=== PATIENT | male | born 1980 | race Caucasian/White ===

== ENCOUNTER 2016-09-13 07:45 | Emergency (ER) | payer OTHER ==
[~2016-09-13] VITALS: Ht 190.5 cm; Wt 103.2 kg
[2016-09-13 07:50] VITALS: BP 167/78; PULSE 89; RESP 16; O2SAT 100
[2016-09-13] MEDS ORDERED: 0.9% Sodium Chloride 1,000 ML IV ONE (07:53)
--- NOTE | 2016-09-13 07:53 | ED.REPORT ---
HPI-General Illness Date of Service Sep 13, 2016 ED Provider: Ant Perez MD The patient is a 36 year old male who presents to the emergency department concerned he may have food poisoning. He ate dinner last night which included barbecued meat, potato salad, and pasta salad. His stomach started hurting soon after. He later developed nausea, vomiting, and diarrhea. His symptoms have continued to onset. His roommate has similar symptoms who ate the same food. He denies bloody stools, bloody emesis, fever, chills, cough, shortness of breath or chest pain. Nursing Notes Stated Complaint: POSS FOOD POISONING Chief Complaint: Male Abdominal Pain Nursing Notes Reviewed: Yes Allergies: Coded Allergies: No Known Allergies (Unverified , 09/13/16) Scheduled PRN Ondansetron ODT (Zofran ODT) 4 Mg Tablet 4 MG PO Q4H PRN PRN For Nausea General Time Seen by MD: 07:52 Chief Complaint Other (possible food poisoning) Hx Obtained From: Patient Arrived By: Walk-in Sudden in Onset?: Yes Onset Occurred: 9 - 12 hours ago Symptom Duration: Since onset Location: : Abdomen Quality: Painful Severity: Current: Pain level 4 out of 10 Severity: Maximum: Moderate Recent Healthcare: No recent doctor visit, No recent hospitalization Similar Sx Previous: No Past Medical History Past Medical History None Family History Noncontributory Social History Other Social History: Local resident Ambulatory Status Independent Review of Systems Full Review of Systems Constitutional: Denies: Chills, Fever Respiratory: Denies: Non-productive cough, Shortness of breath Cardiovascular: Denies: Chest pain GI: Reports: Abdominal pain, Diarrhea, Nausea, Vomiting, Denies: Bloody/tarry stool, Hematemesis, Hematochezia, Melena Complete sys rev & neg: except as marked. Physical Exam Vital Signs Vital Signs Date Time Temp Pulse Resp B/P Pulse Ox O2 Delivery O2 Flow Rate FiO2 09/13/16 07:50 36.6 89 16 167/78 100 Room Air Initial VS: Reviewed Head / Eyes: Atraumatic, Normocephalic, PERRL Neck: Supple, Non-tender, Full range of motion Respiratory: Breath sounds normal, Clear to auscultation, No respiratory distress Cardiovascular: Regular rate & rhythm, Heart sounds normal, Intact distal pulses Lymphatic: No lymphadenopathy Extremities: Vascular intact, Neuro intact, No swelling, No tenderness Skin: Warm, Dry, No cyanosis Neurologic: Alert, Oriented, Nonfocal Psychiatric: Mood/affect normal, Behavior normal, Normal thought content General/Constitutional: Awake, Alert, Cooperative ENT: Airway patent Mouth: Positive: Mucous membranes dry (lightly) Abdomen: Soft, No guarding, No rebound, BS normoactive, No distention Tenderness/Guarding/Rebound: Positive: Tender diffuse (mild) Interpretation & Diagnostics Lab Results Interpretation Result Diagram: 09/13/16 0806 09/13/16 0806 Test 09/13/16 08:06 09/13/16 08:07 White Blood Count 16.5th/mm3 (3.8-10.1) Red Blood Count 5.80mil/mm3 (4.40-5.80) Hemoglobin 17.6g/dL (13.8-17.2) Hematocrit 52.2% (41.0-50.0) Mean Corpuscular Volume 90.0fL (81-100) Mean Corpuscular Hemoglobin 30.3pg (27.0-35.0) Mean Corpuscular Hemoglobin Concent 33.7% (32.0-37.0) Red Cell Distribution Width 14.3% (12.3-15.4) Platelet Count 274bil/L (150-400) Neutrophils (%) (Auto) 90.6% (40-74) Lymphocytes (%) (Auto) 3.6% (14-46) Monocytes (%) (Auto) 4.0% (4-12) Eosinophils (%) (Auto) 1.4% (0-5) Basophils (%) (Auto) 0.1% (0-3) Sodium Level 139mEq/L (134-144) Potassium Level 4.9mEq/L (3.5-5.2) Chloride Level 101mEq/L (97-108) Carbon Dioxide Level 26mmol/L (18-29) Blood Urea Nitrogen 16mg/dL (6-20) Creatinine 1.14mg/dL (0.76-1.27) Estimat Glomerular Filtration Rate 78mL/min (>59) Glucose Level 138mg/dL (60-99) Calcium Level 9.2mg/dL (8.5-10.1) Total Bilirubin 0.4mg/dL (0.0-1.2) Aspartate Amino Transf (AST/SGOT) 35U/L (0-50) Alanine Aminotransferase (ALT/SGPT) 48U/L (0-44) Alkaline Phosphatase 80U/L (25-150) Total Protein 8.0g/dL (6.4-8.4) Albumin 4.9g/dL (3.4-5.0) Lipase 22U/L (13-60) Re-Eval/Medical Decision Med Decision/Clinical Course Patient is a generally healthy 36-year-old male who presents with vomiting and diarrhea after eating at a barbecue yesterday. His friend has had similar symptoms and he admits to consuming room temperature potato salad. Here in the emergency department the patient is afebrile with stable vital signs and in no apparent distress. CBC revealed leukocytosis 16 but was otherwise unremarkable. CMP was unremarkable. Abdominal examination is benign and there are no findings suggestive of acute surgical intra-abdominal process such as appendicitis. Patient was treated with IV fluids and Zofran and reported significant subjective improvement. He was able to tolerate PO fluids. Overall presentation most consistent with toxin mediated food poisoning given relatively quick onset of symptoms after consuming food at [employer]. He has had no fevers or bloody vomiting/diarrhea suggestive of bacterial mediated process. I feel that he is appropriate for discharge home. He will continue to orally rehydrate and has been prescribed Zofran to use as needed. Follow-up and return precautions were given detailed he was discharged in good condition. Source of Hx: Old records Time of Eval: 08:07 Re-Evaluation/Progress Note: Discussed plan for medications and discharge. All questions were addressed. Counseled Regarding: Diagnosis, Lab results, Need for follow-up, When/why to return to ED Discharge & Departure Primary Impression: Nausea, vomiting, and diarrhea Additional Impressions: Food poisoning Leukocytosis Leukocytosis type: unspecified Qualified Code: D72.829 - Elevated white blood cell count, unspecified Dehydration Disposition: Home Discharge Condition All VS Reviewed: Yes Condition: Stable Additional Instructions: Thank you for seeking care at the emergency room. It is difficult for us to make definitive diagnoses in the ED but we believe that you are experiencing symptoms related to food poisoning.. Our primary goal today in the ED was to evaluate you for any life-threatening conditions. Your evaluation was reassuring. You will be discharged with a prescription for Zofran.. You should follow-up with your primary doctor in the next week if you are not feeling better. You should return to the ED immediately if you develop severe abdominal pain, fevers, uncontrollable vomiting, shortness of breath, chest pain, lightheadedness, weakness or any other concerning signs or symptoms. Thank you for letting us partake in your care today. Referrals: [facility] (PCP) [facility] Attestation Portions of this note were transcribed by Selma Garcia. I, Dr. Perez personally performed the history, physical exam and medical decision-making; I reviewed and confirmed the accuracy of the information in the transcribed note. Signed by: Daria Sandoval, 09/13/2016 and 08. Ant Perez MD Sep 13, 2016 07:53 Selma Garcia Sep 13, 2016 07:55
[2016-09-13] MEDS ORDERED: Ondansetron 2 mg/mL 2 mL Inj IVPUSH ONE (07:55)
[2016-09-13 08:09] LABS: BASOPHILS % (AUTO) 0.1 % (0-3); EOSINOPHILS % (AUTO) 1.4 % (0-5); Mean Corpuscular Hemoglobin 30.3 pg (27.0-35.0); NEUTROPHILS % (AUTO) 90.6 % (40-74); Platelet Count 274 bil/L (150-400)
[2016-09-13] MEDS ORDERED: ONDA4TAB9 PO (08:22)
== END 2016-09-13 09:28 | disposition home or self-care (01) ==
LOC: SED 07:45
DX: R11.2 Nausea with vomiting, unspecified (principal); R19.7 Diarrhea, unspecified; A05.9 Bacterial foodborne intoxication, unspecified; D72.829 Elevated white blood cell count, unspecified; E86.0 Dehydration
CPT/HCPCS: 80053; 83690; 85025; 96361; 96374; 99284; J2405; J7030